=== PATIENT | male | born 1980 | race Caucasian/White ===

== ENCOUNTER 2025-08-25 06:25 | Day surgery (SDC) | payer MEDICAID, SELFPAY ==
[2025-08-23 07:34] VITALS: BMI 30.4
--- NOTE | 2025-08-23 07:47 | EKG_ITS ---
[facility] Test Date: 2025-08-23 Pat Name: ROSARIO JEAN Department: Room: - Gender: Male Equine Internship: WENDIE : 1980 Requested By: Sen Malcolm Order Number: [id number] Reading MD: Sen Malcolm Measurements Intervals [place] Rate: 74 P: 44 MN: 202 QRS: 35 QRSD: 113 T: 132 QT: 379 QTc: 421 Interpretive Statements SINUS RHYTHM MODERATE INTRAVENTRICULAR CONDUCTION DELAY [110+ ms QRS DURATION] NONSPECIFIC ST & T-WAVE ABNORMALITY No previous ECG available for comparison /[id number]/[email or web address]/[id number].pdf
[2025-08-23 07:55] LABS: Collection Type, Urine Clean Catch
[2025-08-23 08:53] LABS: Basophils # (Auto) 0.0 Thou/mm3 (0.0-0.2); Basophils % (Auto) 1 % (0-2.5); Eosinophils # (Auto) 0.1 Thou/mm3 (0.0-0.5); Eosinophils % (Auto) 1 % (0-10); Hematocrit 45.4 % (41.0-53.0); Hemoglobin 15.7 g/dL (13.5-16.0); Immature Granulocytes Auto 0.00 Thou/mm3 (0.00-0.00); Lymphocytes # (Auto) 1.6 Thou/mm3 (1.0-4.8); Lymphocytes % (Auto) 26 % (10-50); Mean Corpuscular HGB Conc 34.6 g/dl (31.0-37.0); Mean Corpuscular Hemoglobin 30.7 pg (25.0-35.0); Mean Corpuscular Volume 89 fL (80-100); Monocytes # (Auto) 0.6 Thou/mm3 (0.0-0.8); Monocytes % (Auto) 10 % (0-12); Neutrophils # (Auto) 3.7 Thou/mm3 (1.8-7.7); Neutrophils % (Auto) 62 % (37-80); Nucleated Red Blood Cell # 0.00 Thou/mm3 (0.00-0.00); Nucleated Red Blood Cell % 0 /100 WBC (0); Platelet Count 273 Thou/mm3 (140-440); RDW Standard Deviation 42.7 fL (35.1-43.9); Red Blood Count 5.11 Miln/mm3 (4.50-5.90); White Blood Count 5.9 Thou/mm3 (3.8-10.6)
[2025-08-23 08:54] LABS: Bilirubin,Urine Negative (Negative); Blood,Urine Negative (Negative); Clarity,Urine Clear (Clear/Hazy); Color,Urine Lt-Yellow (Lt Yel-Yel); Glucose, Urine Negative (Negative); Hyaline Casts,Urine < 1 /hpf (0-1); Ketones,Urine Negative (Negative); Leukocyte Esterase,Urine Negative (Negative); Nitrite,Urine Negative (Negative); PH,Urine 6.0 (5.0-7.0); Protein,Urine Negative (Neg - Trace); RBC,Urine 4 /hpf (0-3); Specific Gravity,Urine 1.020 (1.001-1.035); Squamous Epithelial Cell,Urine < 1 /hpf (0-5); Urobilinogen,Urine Negative mg/dL (0.0-1.0); WBC,Urine 2 /hpf (0-5)
[2025-08-23 09:04] LABS: Alanine Aminotransferase 43 U/L (10-49); Albumin, Serum 5.0 gm/dL (3.5-5.0); Albumin/Globulin Ratio 2.0 (1.2-2.2); Alkaline Phosphatase 54 U/L (46-116); Anion Gap 7 (7-16); Aspartate Amino Transferase 26 U/L (0-34); BUN/Creatinine Ratio 12 Ratio (12-20); Bilirubin,Total 0.6 mg/dL (0.3-1.2); Blood Urea Nitrogen 13 mg/dL (9-23); Calcium 9.8 mg/dL (8.3-10.6); Calcium (Corrected) 9.8 mg/dL (8.5-10.1); Carbon Dioxide 29.1 mMol/L (20.0-31.0); Chloride 107 mMol/L (98-107); Creatinine (Component) 1.1 mg/dL (0.6-1.3); Estimated Creatinine Clearance 103.6 mL/min (>60); Globulin 2.5 gm/dL (2.3-3.5); Glucose 100 mg/dL (74-106); Osmolality,Calculated 285 (275-295); Potassium 4.4 mMol/L (3.4-5.1); Sodium 143 mMol/L (136-145); Total Protein 7.5 gm/dL (5.7-8.2); eGFR > 60 See Note
--- NOTE | 2025-08-24 10:14 | ESHP_ITS ---
RE: KYLER BARLOW : 1980 DATE OF ADMISSION: 08/24/2025 Kyler Barlow is a young gentleman 45 year old with a scrotal mass on the right side. He is urinating well. There is no blood in the urine. Previous surgeries included some obstruction to his bladder and had surgery done in [place]. He has 1 child. ALLERGIES: NONE KNOWN. PAST MEDICAL HISTORY: He has history of hypertension. No history of diabetes. HOME MEDICATIONS: He takes blood pressure medication. PHYSICAL EXAMINATION: Clinical examination reveals: HEENT: Normal. Neck: Supple. Lungs: Clear. Heart sounds: Normal. Abdomen: Soft without any organomegaly. No guarding. No rigidity. Extremities: Normal. Genitourinary: Phallus is normal. Testes are down in the scrotum. There is a right-sided spermatocele about 4-5 cm in size above the right testes. IMPRESSION: Right spermatocele. This has been bothering him. PLAN: Patient is scheduled to have right spermatocelectomy. Planned procedure, risks and complications have been discussed with the patient. Patient understood them and agreed to proceed. DT: 09:56:43 TT: 10:13:00 Ref: [id number] - TID: [id number]
[2025-08-25] VITALS (8 sets, daily range): BP systolic 116–148; BP diastolic 76–98; PULSE 73–104; RESP 12–18; TEMP 36.3–36.7; O2SAT 97–100; BMI 30.4
[2025-08-25] MEDS: RINGERS LACTATED 1000 ML 1,000 ML 20 ML IV (07:38)
--- NOTE | 2025-08-25 09:54 | SUR.PHASEI ---
0954: pt received from OR via [facility]. received report from REGGIE Chambers and Derrell Hussein CRNA. pt sleepy but arousable when called his name. no s/s of resp. distress or discomfort. no s/s of pain or discomfort. dressing to penis with scrotal support clean, dry and intact.
--- NOTE | 2025-08-25 10:05 | SUR.PHASEI ---
1005: discharge instructions given to Holden (brother) via phone, all questions was answered.
--- NOTE | 2025-08-25 10:10 | SUR.PHASEI ---
1010: Ice pack to top of dressing per MD ordered.
--- NOTE | 2025-08-25 10:17 | SUR.PHASEI ---
1017: pt able to have ice chips without any issues.
--- NOTE | 2025-08-25 10:26 | ESOP_ITS ---
RE: ROSARIO JEAN : 1980 PREOPERATIVE DIAGNOSIS: Right scrotal spermatocele. POSTOPERATIVE DIAGNOSIS: Right scrotal spermatocele. PROCEDURE PERFORMED: Right spermatocelectomy with excision and fulguration of the appendix of right testis. ANESTHESIA: General by Mr. Derrell Hussein CRNA. INDICATIONS: The patient is a 45-year-old gentleman, who was referred to [place] with history of right-sided scrotal swelling. The patient has a 5 cm right spermatocele or epididymal cyst above the right testis. It has been bothering him. The patient was now scheduled to have right spermatocelectomy. Planned procedure, risks, and complications have been discussed with the patient. The patient understood them and agreed to proceed. DESCRIPTION OF PROCEDURE: After the patient was brought to the operating table, under adequate general anesthesia given by Mr. Derrell Hussein CRNA, he was placed in supine position. Parts were prepped and draped in the usual fashion. A right vertical incision was made over the right hemiscrotum about 4 cm long. Skin and subcutaneous tissues were incised. Hemostasis was obtained. The tunica vaginalis sac was then opened. The right testis was delivered out of the incision. The testis appeared to be normal except prominent appendix of the right testis, which was excised and fulgurated. The patient had a large right spermatocele about 5 cm above the right testis. This was carefully excised. Complete hemostasis was obtained. The right testis was put back into the right hemiscrotum, and the scrotal wound was then closed in 2 layers with 3-0 chromic catgut sutures. Local anesthetic was injected at the site of the skin. A sterile dressing was then applied. The patient was then transferred to the recovery room in a satisfactory condition, having tolerated the entire procedure well. Sponge count and needle count at the end of the procedure was found to be correct. Estimated blood loss was approximately 2 mL. DT: 10:06:47 TT: 10:25:00 Ref: [id number] - TID: [id number]
--- NOTE | 2025-08-25 10:35 | SUR.PHASEII ---
1035: pt able to drink water, soda and ate jello without any issues.
--- NOTE | 2025-08-25 10:54 | SUR.PHASEII ---
1054: pt discharge to home via wheelchair. pt alert and oriented. no s/s of resp. distress or discomfort. denies any pain or discomfort. dressing to penis with scrotal support clean, dry and intact. discharge instructions given to cherieerNagi and pt, verbalizes understanding. all belongings brought given back to patient.
== END 2025-08-25 10:54 | disposition home or self-care (01) ==
PROVIDERS: Anesthesiology; PCP Family Medicine; Referring Provider Surgery; Visit Provider Surgery
PROC: (CPT 54840; principal; 2025-08-25 08:30)
DX: N43.41 Spermatocele of epididymis, single (principal); Z01.810 Encounter for preprocedural cardiovascular examination; Q55.29 Other congenital malformations of testis and scrotum
CPT/HCPCS: 54840; 54512; 36415; 80053; 81001; 85025; 93005; A4649; J0131; J0690; J1171; J1885; J2250; J2704; J3010; J3490; J7120; L8330; A9270